=== PATIENT | male | born 1955 | race African-American/Black ===

== ENCOUNTER 2018-10-29 11:35 | Outpatient (CLI) | payer MEDICARE, OTHER ==
--- NOTE | 2018-10-29 12:11 | RAD ---
LUMBAR SPINE 3 VIEWS: HISTORY: Lumbago with sciatica FINDINGS: There are degenerative changes in the lumbar spine. There is mild anterior wedging of the superior en dplates of T12 and L1 vertebral bodies. No subluxation is seen.
[2018-10-29 12:44] LABS: ALT (SGPT) 7 U/L (8-55); AST (SGOT) 24 U/L (5-34); Albumin 3.9 g/dL (3.4-4.8); Alkaline Phosphatase 69 U/L (40-150); Anion Gap 15 mmol/L (10-20); BUN (Urea Nitrogen) 14 mg/dL (8.4-25.7); Bilirubin, Total 0.3 mg/dL (0.2-1.2); Calc. Creatinine Clearance 0 mL/min (70-130); Calcium 8.9 mg/dL (7.8-10.44); Carbon Dioxide 18 mmol/L (23-31); Cardiac Risk 4.9 (Less than 4.5); Chloride 112 mmol/L (98-107); Cholesterol 180 mg/dl (< 200 Desired); Estimated GFR-MDRD Greater than 90; Glucose 62 mg/dL (80-115); HDL Cholesterol 37 mg/dL (>60 Neg Risk); LDL Cholesterol, Calculated 126 mg/dL; Potassium 4.8 mmol/L (3.5-5.1); Protein, Total 6.9 g/dL (5.8-8.1); Sodium 140 mmol/L (136-145); Triglycerides 87 mg/dL (Less than 150); Uric Acid 5.9 mg/dL (3.5-7.2)
[2018-10-29 17:10] LABS: Hemoglobin A1c 6.3 % (4.0-6.0)
[2018-10-29 17:26] LABS: Creatinine, Urine 428.3 mg/dL (63-166)
== END 2018-10-29 11:36 | disposition home or self-care (01) ==
LOC: MADLABBHPM 11:35
PROVIDERS: ATTEND Family Medicine
DX: E78.2 Mixed hyperlipidemia (principal); E11.65 Type 2 diabetes mellitus with hyperglycemia; I10 Essential (primary) hypertension
CPT/HCPCS: 36415; 72100; 80053; 80061; 82043; 83036; 84443; 84550

== ENCOUNTER 2019-02-06 15:24 | Emergency (ER) | payer OTHER ==
[2019-02-06] MEDS ORDERED: Cyclobenzaprine 10 MG TAB ONE (16:29)
== END 2019-02-06 16:46 | disposition home or self-care (01) ==
LOC: MADERS 15:24
DX: M10.9 Gout, unspecified (principal); M54.41 Lumbago with sciatica, right side; I10 Essential (primary) hypertension; E11.9 Type 2 diabetes mellitus without complications; F41.9 Anxiety disorder, unspecified; F32.9 Major depressive disorder, single episode, unspecified; Z79.84 Long term (current) use of oral hypoglycemic drugs; Z79.899 Other long term (current) drug therapy
CPT/HCPCS: 96372; 99283; J1040